=== PATIENT | female | born 1945 | race African-American/Black ===

== ENCOUNTER 2016-12-27 10:00 | Day surgery (SDC) | payer OTHER ==
[2016-12-21 12:02] LABS: HEMATOCRIT 25.7 % (36.0-48.0); HEMOGLOBIN 8.3 g/dL (12.0-16.0)
[2016-12-21 12:22] LABS: BUN (BLOOD UREA NITROGEN) 39 MG/DL (6-23); CHLORIDE, SERUM 109 MMOL/L (96-112); CO2 (CARBON DIOXIDE) 21 MMOL/L (24-34); CREATININE 2.81 MG/DL (0.55-1.02); GFR AFRICAN AMERICAN 19 ML/MIN (>=60); GFR NON AFRICAN AMERICAN 16 ML/MIN (>=60); GLUCOSE, SERUM 85 MG/DL (60-99); POTASSIUM, SERUM 4.9 MMOL/L (3.5-5.3); SODIUM, SERUM 139 MMOL/L (135-148)
--- NOTE | ~2016-12-27 | OP ---
Record Of Operation [facility] [address] [place]. [address] NAME: FRANSISCA LUNA : 45 STATUS : REG [facility] PAT#: [id number] AGE: 71 ADM/REG DATE : 12/27/16 MR#: [id number] REPORT SERV DATE: 12/27/16 DICTATED BY: MARCOS YING DATE: 12/27/16 REPORT STATUS : Draft TRANSCRIBED BY: MODL DATE: 12/27/16 DATE OF PROCEDURE: 12/27/2016 PREOPERATIVE DIAGNOSIS: Chronic kidney disease, stage 4. POSTOPERATIVE DIAGNOSIS: Chronic kidney disease, stage 4. PROCEDURE: Left upper extremity brachiocephalic arteriovenous fistula creation. SURGEON: Marcos Ying M.D. WELDER FITTER HELPER: Chiquis. ANESTHESIA: MAC with regional block. ESTIMATED BLOOD LOSS: 50 mL. COMPLICATIONS: None. INDICATION: Ms Luna is a pleasant, 71-year-old female with chronic kidney disease, stage 4, nearing the need for hemodialysis. She is recommended for early fistula creation. Preoperative vein mapping suggests usable cephalic vein in the upper arm on the left. DETAILS OF PROCEDURE: After informed consent was obtained, the patient was brought to the endovascular suite and placed in supine position. After administration of regional block and IV sedation, she was prepped and draped in the usual sterile fashion. A time-out was performed. I commenced the procedure with ultrasound examination of the veins of the left arm. The cephalic vein was decent caliber at the wrist but becomes fairly small in the mid forearm. The cephalic vein in the upper arm was decent caliber and appears to be usable. As a result, we made an incision in the antecubital fossa. We exposed the cephalic vein and mobilized it proximally and distally. Cephalic vein measures approximately 2.5 mm in diameter at this level. Through the same incision, we exposed the brachial artery. Brachial artery superiorly disease free and pulsatile. It also measures about 2.5 mm in diameter. We administered 2000 units of IV heparin. I ligated the cephalic vein distally. It flushed easily with heparinized saline. I clamped the brachial artery. We performed end to-side anastomosis of the cephalic vein of the brachial artery with running 6-0 Prolene. Prior to completing the suture line, we flushed. We then restored flow to the fistula first and then to the arm distally. There was immediately palpable thrill within the fistula. The vein dilated nicely. There was still faintly palpable radial pulse at the wrist. After that, we ensured hemostasis. I then closed the wound in layers of 3-0 Vicryl for the deep layer with running 4-0 Monocryl in subcuticular fashion for the skin. Dermabond was applied. The patient tolerated the procedure well with no complications. I was present and participated this entire case as dictated. Record Of Operation [address] [place]. [address] NAME: FRANSISCA LUNA : 45 STATUS : REG [facility] PAT#: [id number] AGE: 71 ADM/REG DATE : 12/27/16 MR#: [id number] REPORT SERV DATE: 12/27/16 DICTATED BY: MARCOS YING. DATE: 12/27/16 REPORT STATUS : Draft TRANSCRIBED BY: ANNETTE DATE: 12/27/16 MARY ANN/ANNETTE Marcos Ying M.D. / [id number] CC: Shukri Ayon M.D.
[~2016-12-27 10:00] MED LIST: ATEN50 PO; BEN25 PO; CRESTOR40 MG PO; ESTRACE0.5 MG PO; HEMOCYTE324 MG PO; NORV25 PO
== END 2016-12-27 18:21 | disposition home or self-care (01) ==
LOC: SDC 10:00
PROVIDERS: Surgery
PROC: 03180ZD Bypass Left Brachial Artery to Upper Arm Vein, Open Approach (ICD-10-PCS; principal; 2016-12-27 12:45)
DX: I12.0 Hypertensive chronic kidney disease with stage 5 chronic kidney disease or end stage renal disease (principal); E78.00 Pure hypercholesterolemia, unspecified; N18.6 End stage renal disease; M19.90 Unspecified osteoarthritis, unspecified site; D63.1 Anemia in chronic kidney disease; Z88.2 Allergy status to sulfonamides; Z79.818 Long term (current) use of other agents affecting estrogen receptors and estrogen levels; Z79.899 Other long term (current) drug therapy; Z87.891 Personal history of nicotine dependence; Z98.41 Cataract extraction status, right eye; Z98.42 Cataract extraction status, left eye; Z96.1 Presence of intraocular lens; Z98.890 Other specified postprocedural states; Z90.710 Acquired absence of both cervix and uterus
CPT/HCPCS: 80048; 85014; 85018; 93005; J0690; J2250; J2795; J3010